=== PATIENT | male | born 1955 | race Caucasian/White ===

== ENCOUNTER 2024-12-10 23:33 | Emergency (ER) | payer MEDICAID ==
[2024-12-10 23:55] LABS: BASOPHILS PERCENT AUTO 0.2 % (0.0-1.0); EOSINOPHILS PERCENT AUTO 2.6 % (1.0-3.0); LYMPHOCYTES PERCENT AUTO 26.5 % (20.5-50.1); MONOCYTES PERCENT AUTO 11.0 % (2-8); NEUTROPHILS PERCENT AUTO 59.7 % (42.2-75.2); PLATELET COUNT,PLT 170 10^3/uL (150-450); RED BLOOD CELL COUNT 4.51 10^6/uL (4.6-6.2); WHITE BLOOD CELL COUNT,WBC 6.5 10^3/uL (5.0-10.0)
[2024-12-11 00:18] LABS: A/G RATIO 1.3; ALANINE AMINOTRANSFERASE,ALT 28.0 U/L (16-63); ASPARTATE AMNIOTRANSFERASE,AST 16.0 U/L (15-37); BILIRUBIN TOTAL 0.8 mg/dL (0.2-1.0); BLOOD UREA NITROGEN,BUN 16.0 mg/dL (7-18); CARBON DIOXIDE,CO2 30.0 mmol/L (21-32); CHLORIDE,CL 105.0 mmol/L (98-107); CREATININE 0.77 mg/dL (0.70-1.30); EST CRCL DRUG DOSING (CG) 102.18 mL/min; GLUCOSE RANDOM 96.0 mg/dL (70-99); POTASSIUM,K 4.4 mmol/L (3.5-5.1); PROTEIN TOTAL,TP 7.3 g/dL (6.4-8.2); SODIUM,NA 140.0 mmol/L (136-145)
[2024-12-11 00:19] LABS: ESTIMATED GFR 98.0 mL/min (>=60)
[2024-12-11] MEDS ORDERED: Ketorolac 30 MG/ML SDV IVPUSH ONE (00:21)
[2024-12-11] MEDS: Ketorolac 30 MG/ML SDV IM ONE (00:32)
== END 2024-12-11 00:55 ==
LOC: DL.ED 23:33
DX: R07.89 Other chest pain (principal); I25.10 Atherosclerotic heart disease of native coronary artery without angina pectoris; Z95.5 Presence of coronary angioplasty implant and graft; Z79.82 Long term (current) use of aspirin; Z79.899 Other long term (current) drug therapy
CPT/HCPCS: 36415; 71045; 80053; 84484; 85025; 85379; 93005; 96372; 99285; J1885; 93010; 99284